=== PATIENT | male | born 1990 | race Caucasian/White ===

== ENCOUNTER 2017-01-22 18:52 | Emergency (ER) | payer BC, MEDICAID, OTHER ==
[2017-01-22] MEDS ORDERED: Acetaminophen/HYDROcodone 325-10 MG Tab PO ONE (19:28)
[2017-01-22] MEDS ORDERED: Morphine 2 MG/ML Syringe IM ONE (19:28)
[2017-01-22] MEDS ORDERED: Ketorolac 30 MG/ML SDV IM ONE (19:28)
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
[2017-01-22] MEDS ORDERED: Take Home: Acetaminophen/HYDROcodone 325-10 MG, 5 Tab Pack PO ONE (21:09)
== END 2017-01-22 21:24 | disposition home or self-care (01) ==
LOC: VM.ED 18:52
DX: S49.92XA Unspecified injury of left shoulder and upper arm, initial encounter (principal); F17.210 Nicotine dependence, cigarettes, uncomplicated; Z98.890 Other specified postprocedural states; X50.0XXA Overexertion from strenuous movement or load, initial encounter; Y92.69 Other specified industrial and construction area as the place of occurrence of the external cause; Y99.0 Civilian activity done for income or pay
CPT/HCPCS: 73020; 73030; 96372; 99283; A9270; J1885; J2270